=== PATIENT | female | born 1990 | race Caucasian/White ===

== ENCOUNTER 2017-11-25 02:58 | Inpatient (IN) | payer MEDICAID, OTHER ==
[2017-11-25 03:38] VITALS: BMI 30.6
[2017-11-25] MEDS ORDERED: Penicillin G Potassium 5 MU in Sodium Chloride 0.9% 50 ML IVPB ONE (03:48)
[2017-11-25] MEDS ORDERED: Lactated Ringer's 1,000 ML IV SCH ×2 (04:00)
--- NOTE | 2017-11-25 04:03 | OBADHP ---
Datetime: 11/25/2017 04:02 Admit Comment, IP Provider: 27yo edc1/6 by lmp _ 19wk us presents w/ c/o painful ctxs. denies s rom, decreased fm, h/a, sctomata, ruq pain, n/v. pmhx: denies pshx: denies shx: denies etoh,drugs tobcco nkda medic: pnv i: 39.1wk labor h/o precipitous labor gbs p: admit pcn g declines epid at presnt Datetime: 11/25/2017 03:55 Pelvic Type - PN: Adequate Extremities - PN: Normal Abdomen - PN: Normal Back - PN: Normal Lungs - PN: Normal Neurologic - PN: Normal HEENT - PN: Normal General - PN: Normal Presentation-Admit: Vertex FHR - Baseline A Provider: 130 Membranes, Provider: Intact Contraction Comments Provider: 2min Comments, ACOG Physical Exam: ri, hepBneg, hiv,rpr neg gbs+ A+ IP Chief Complaint: Uterine contractions NICHD Variability Prov Fetus A: Minimal - Undetectable to <5bpm NICHD Accel Fetus A IP Provider: [id number] NICHD Decel Fetus A IP Provider: None Effacement, Provider: 80 Station, Provider: -1 Genitourinary Exam: Normal IP Adm Impression: Term, intrauterine IP Admit Plan: Admit to unit
[2017-11-25] MEDS ORDERED: Penicillin G 5 Million Unit Vial IVPB ONE (04:06)
[2017-11-25 04:19] LABS: BASO % 0.5 % (0.0-2.0); EOS # 0.1 K/uL (0.0-0.7); EOS % 1.6 % (0.0-4.0); HEMOGLOBIN 10.6 g/dL (12.0-16.0); LYMPH # 2.1 K/uL (1.0-4.3); LYMPH % 29.5 % (20.0-40.0); MEAN CELL VOLUME 79.4 fl (81.0-99.0); MEAN CORPUSCULAR HEMOGLOBIN 25.9 pg (27.0-31.0); MEAN CORPUSCULAR HGB CONC 32.6 g/dL (33.0-37.0); MEAN PLATELET VOLUME 9.3 fl (7.2-11.7); MONO # 0.6 K/uL (0.0-0.8); MONO % 8.9 % (0.0-10.0); NEUT # 4.2 K/uL (1.8-7.0); NEUT % 59.5 % (50.0-75.0); RBC 4.11 Mil/uL (3.80-5.20); RED CELL DISTRIBUTION WIDTH 25.4 % (11.5-14.5)
[2017-11-25] MEDS ORDERED: Lidocaine 1% Inj (20ml) ONE (05:02)
[2017-11-25] MEDS ORDERED: Oxytocin 30 UNITS in Sodium Chloride 0.9% 500 ML IV ONE (06:15)
--- NOTE | 2017-11-25 10:41 | OBDS ---
LABOR SUMMARY EDC: 12/01/2017 00:00 No. Babies in Womb: 1 LABOR INFORMATION Group B Beta Strep: Positive MEMBRANES Membranes Rupture Method: Artificial Amniotic Fluid Color: Clear Amniotic Fluid Amount: Small
[2017-11-25] MEDS ORDERED: Oxycodone/Acetaminophen 5/325 mg Tab PO PRN ×4 (10:47→11:21)
[2017-11-25] MEDS ORDERED: Benzocaine/Menthol SPRAY TOP PRN (10:47)
[2017-11-25 12:33] VITALS: RESP 20; O2SAT 100
[2017-11-25] MEDS ORDERED: Influenza Vaccine 18yr & older 0.5 ML/45 MCG SYR IM ONE (20:30)
[2017-11-25] MEDS: Benzocaine/Menthol SPRAY TOP PRN (21:53)
[2017-11-26 06:53] LABS: BASO % 0.3 % (0.0-2.0); EOS # 0.1 K/uL (0.0-0.7); EOS % 1.1 % (0.0-4.0); HEMOGLOBIN 10.3 g/dL (12.0-16.0); LYMPH # 2.4 K/uL (1.0-4.3); LYMPH % 24.5 % (20.0-40.0); MEAN CELL VOLUME 79.8 fl (81.0-99.0); MEAN CORPUSCULAR HEMOGLOBIN 26.4 pg (27.0-31.0); MEAN CORPUSCULAR HGB CONC 33.1 g/dL (33.0-37.0); MEAN PLATELET VOLUME 9.4 fl (7.2-11.7); MONO # 0.7 K/uL (0.0-0.8); MONO % 7.2 % (0.0-10.0); NEUT # 6.6 K/uL (1.8-7.0); NEUT % 66.9 % (50.0-75.0); RBC 3.89 Mil/uL (3.80-5.20); WHITE BLOOD COUNT 9.9 K/uL (4.8-10.8)
[2017-11-26] MEDS ORDERED: Influenza Vaccine 18yr & older 0.5 ML/45 MCG SYR IM ONE (07:00)
--- NOTE | 2017-11-26 08:17 | OBPPN ---
Datetime: 11/26/2017 05:58 PP Pain Prov: Within normal limits PP Nausea Prov: Denies PP Flatus Prov: Yes PP BM Prov: Yes PP Heart Prov: Normal PP Lungs Prov: Normal PP Abdomen/Uterus Prov: Normal PP Lochia Prov: Normal PP CVA Tenderness Prov: Normal PP Extremities Prov: Normal PP C/S Incision Prov: Not Applicable PP Progress Prov: Normal PP Impression Prov: Normal progression PP Plan Prov: Continue present management PP Progress Note Prov: 27 y/o F now on PPD 1. Pt had a on 11/25/17 and a 1st degree perin eal laceration. No acute events overnight. Pelvic pain is mild and well controlled with medications. Pt tolerating PO, ambulating and voiding with no difficulties. Lochia is less than menses. Pt is jasmyne stfeeding only. Pt passing gasses and had a bowel movement this morning. Pt denies fever, headache, v isual disturbances, CP, SOB, N/V or pruritus. PE Gen: Pt resting comfortably on bed, AAOx3, not in acute distress. Lungs: CTA B/L. No W/R/R. CV: S1 S2 present, regular rhythm. Abd: BS+, soft, fundus of uterus firm and at level of umbilicus. Ext: no edema, neg Jason's sign, non-tender calves. NEURO/PSYCH: no grossly focal deficit, preserved affect and mood. A/P: 27 y/o F on PPD 1, recovering well from . -Continue medical management. -Encourage and ambulation. Sg Aguilera PGY-1. OB Hospitalist Addendum: Pt seen and examined by me. Agree w/ above. PPD 1 s/p , doing well, breast feeding. (ES) IP PP Procedures: None Vital Signs Provider PP: Reviewed
[2017-11-26] MEDS: Benzocaine/Menthol SPRAY TOP PRN (08:43)
[2017-11-27] MEDS ORDERED: Influenza Vaccine 18yr & older 0.5 ML/45 MCG SYR IM ONE (07:00)
--- NOTE | 2017-11-27 12:26 | OBPPN ---
Datetime: 11/27/2017 08:30 PP Pain Prov: Within normal limits PP Nausea Prov: Denies PP Flatus Prov: Yes PP BM Prov: Yes PP Breasts Prov: Not Done PP Heart Prov: Normal PP Lungs Prov: Normal PP Abdomen/Uterus Prov: Normal PP Lochia Prov: Normal PP Vulva/Perineum Prov: Not Done PP CVA Tenderness Prov: Normal PP Extremities Prov: Normal PP C/S Incision Prov: Not Applicable PP Progress Prov: Normal PP Impression Prov: Normal progression PP Plan Prov: Discharge PP Progress Note Prov: PPD 2 S: 27 yo s/p NVD on 11/25/17 at 10:24. Pt. is seen and examined at bedside this AM. No overni ght events. Pt reports occasional abdominal pain, but well controlled with pain meds. Pt is ambulatin g without any difficulties. Breast feeding baby. Tolerating PO diet. Lochia is similar to light mense s in volume. Voiding freely, bowel movement, and passing gas per rectum. Denies fever, chills, diarrh ea, nausea, vomiting, chest pain, dyspnea, and dizziness. O: VS: stable GEN: NAD Cardio: S1S2, no M/G/R Resp: clear breath sounds b/l, no wheezing Abdomen: BS+, NT, Uterus is firm and at the level of the umbilicus. EXT: No edema, calves nontender NEURO/PSYCHI: AAOx3, no grossly focal deficit, preserved affect and mood. Assessment/Plan: 27 yo s/p NVD on 11/25/17 at 10:24. Pt remains afebrile, tolerating pain wit h medication, tolerating PO intake, doing well on PPD2. OOB with caution pt ambulating Ibuprofen 600mg for pain. Encourage and ambulating F/u CBC post-delivery: 10.31.1 Anticipated d/c to home, 11/27/17. --- Jj Real MD [facility]pt adriana nd examined on rounds this AM ... agree with PGY1 note IP PP Procedures: None Vital Signs Provider PP: Reviewed; Within Normal Limits
--- NOTE | 2017-11-27 12:29 | OBDCSUM ---
Datetime: 11/27/2017 09:03 Discharged to, Provider: Home Follow up at, Provider: OB in 4-6 weeks for pp follow up Disch Instr Activity: Normal activity; May Shower Disch Instr Diet: Regular Discharge Instructions, Provider: Routine instructions given Discharge Diagnosis, Provider: Term Delivered Discharge Time: 11/27/2017 10:00 Follow up in weeks, Provider: 4-6 weeks Disch Referrals: None Contraception discussed, Prov: Yes Disch Activity Restrictions: No exercising; No lifting; No driving; Minimize walking; No sexual acti vity; Nothing in vagina - [place], tampons, douche Discharge Comment, Provider: DOA: 11/25/2017 EGA: 39.0 Diagnosis: NVD Term Risk factors: none Summary of : 27 yo L_D summary DOL: 11/25/2017 at 10:24 NVD NB: M : 08/[birth year] Weight: 3595 g PP summary No serious complications during PP. 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
[2017-11-27 18:08] VITALS: BP 117/66; PULSE 75; TEMP 97.3
== END 2017-11-27 13:39 | disposition home or self-care (01) | DRG 373 ==
LOC: H.EROB2 02:58 → H.L&D 03:47 → H.OB/GYN 12:30
PROVIDERS: ADMIT Obstetrics & Gynecology; ATTEND Obstetrics & Gynecology
PROC: 10E0XZZ Delivery of Products of Conception, External Approach (ICD-10-PCS; principal; 2017-11-25)
PROC: 0HQ9XZZ Repair Perineum Skin, External Approach (ICD-10-PCS; 2017-11-25)
PROC: 10907ZC Drainage of Amniotic Fluid, Therapeutic from Products of Conception, Via Natural or Artificial Opening (ICD-10-PCS; 2017-11-25)
PROC: 4A1HXCZ Monitoring of Products of Conception, Cardiac Rate, External Approach (ICD-10-PCS; 2017-11-25)
PROC: 3E0234Z Introduction of Serum, Toxoid and Vaccine into Muscle, Percutaneous Approach (ICD-10-PCS; 2017-11-25)
DX: O70.0 First degree perineal laceration during delivery (principal); O99.820 Streptococcus B carrier state complicating pregnancy; Z37.0 Single live birth; Z3A.39 39 weeks gestation of pregnancy; Z23 Encounter for immunization